=== PATIENT | male | born 1965 | race Caucasian/White ===

== ENCOUNTER 2021-10-04 15:06 | Emergency (ER) | payer SELFPAY ==
[2021-10-04 17:20] LABS: #Eosinphils 0.3 10x3/uL (0.0-0.5); #Monocytes 0.6 10x3/uL (0.0-1.1); #Neutrophils 4.5 10x3/uL (1.5-8.4); %Basophils 0.5 % (0.0-2.0); %Eosinophils 4.1 % (0.0-6.0); %Lymphocytes 34.9 % (18.0-47.0); %Monocytes 6.7 % (0.0-10.0); %Neutrophils 53.6 % (40.0-75.0); Hemoglobin 14.9 g/dL (13.5-17.5); Mean Corpuscular HGB CONC 33.6 g/dL (32.0-36.0); Mean Corpuscular Hemoglobin 30.7 pg (27.0-33.0); Mean Corpuscular Volume 91.5 fl (81.2-95.1); Mean Platelet Volume 9.4 fl (7.4-10.4); Platelet Count 227 10x3/uL (150-450); RBC Distribution Width 13.2 % (11.5-14.5); Red Blood Cell (RBC) Count 4.85 10x6/uL (4.32-5.72); White Blood Cell (WBC) Count 8.3 10x3/uL (3.5-10.5)
[2021-10-04 17:30] LABS: INR-International Normal Ratio 0.9; PTT 26.8 sec (22.0-33.0); Prothrombin Time 10.5 sec (9.5-12.1)
[2021-10-04 17:34] LABS: Anion Gap 17 mmol/L (10-20); BUN (Urea Nitrogen) 16 mg/dL (8.4-25.7); CRP (Inflammatory) Less than 0.50 mg/dL (= or < 0.5); Calc. Creatinine Clearance 0 mL/min (70-130); Calcium 9.3 mg/dL (7.8-10.44); Carbon Dioxide 23 mmol/L (22-29); Chloride 106 mmol/L (98-107); Glucose 92 mg/dL (70-105); Potassium 3.9 mmol/L (3.5-5.1); Sodium 142 mmol/L (136-145)
[2021-10-04] MEDS ORDERED: Ketorolac Tromethamine 30 MG/ML VIAL ONE ×2 (18:18→23:11)
[2021-10-04] MEDS ORDERED: Diazepam 10 MG/2 ML SYRINGE ONE (18:19)
[2021-10-04] MEDS ORDERED: Ondansetron PF 4 MG/2 ML Vial ONE (20:01)
[2021-10-04] MEDS ORDERED: Morphine 4 MG/ML VIAL ONE ×2 (20:01→21:01)
[2021-10-04] MEDS ORDERED: methylPREDNISolone Sod Succ/PF 125 MG/2 ML VIAL ONE (23:11)
== END 2021-10-04 18:21 | disposition home or self-care (01) ==
LOC: CSHERS 15:06
DX: S33.5XXA Sprain of ligaments of lumbar spine, initial encounter (principal); M54.30 Sciatica, unspecified side; I10 Essential (primary) hypertension; X58.XXXA Exposure to other specified factors, initial encounter
CPT/HCPCS: 80048; 85025; 85610; 85730; 86140; 96374; 96375; J1885; J2270; J2405; J2930; J3360

== ENCOUNTER 2022-10-05 14:43 | Emergency (ER) | payer BC ==
[2022-10-05] MEDS ORDERED: Dexamethasone 10 MG/ML VIAL ONE (15:22)
[2022-10-05] MEDS ORDERED: Bicillin LA 1.2 MILLION UNITS/2 ML SYRINGE IM SCH (16:45)
[2022-10-05] MEDS ORDERED: Penicillin G Benzathine 600,000 UNITS/ML SYRINGE IM SCH (17:00)
== END 2022-10-05 17:12 | disposition home or self-care (01) ==
LOC: CSHERS 14:43
DX: J02.0 Streptococcal pharyngitis (principal); Z20.822 Contact with and (suspected) exposure to COVID-19
CPT/HCPCS: 87430; 96372; 99283; J1100; U0003; U0005

== ENCOUNTER 2023-02-22 08:34 | Emergency (ER) | payer BC ==
[2023-02-22 09:29] LABS: #Monocytes 0.3 10x3/uL (0.0-1.1); #Neutrophils 10.1 10x3/uL (1.5-8.4); %Basophils 0.1 % (0.0-2.0); %Lymphocytes 6.3 % (18.0-47.0); %Monocytes 2.8 % (0.0-10.0); %Neutrophils 90.4 % (40.0-75.0); Hemoglobin 16.2 g/dL (13.5-17.5); Mean Corpuscular HGB CONC 33.3 g/dL (32.0-36.0); Mean Corpuscular Hemoglobin 30.1 pg (27.0-33.0); Mean Corpuscular Volume 90.4 fl (81.2-95.1); Mean Platelet Volume 8.9 fl (7.4-10.4); Platelet Count 215 10x3/uL (150-450); RBC Distribution Width 13.3 % (11.5-14.5); Red Blood Cell (RBC) Count 5.39 10x6/uL (4.32-5.72); White Blood Cell (WBC) Count 11.2 10x3/uL (3.5-10.5)
[2023-02-22] MEDS ORDERED: Ondansetron PF 4 MG/2 ML Vial ONE (09:31)
[2023-02-22 09:41] LABS: ALT (SGPT) 25 U/L (8-55); AST (SGOT) 31 U/L (5-34); Albumin 4.9 g/dL (3.5-5.0); Alkaline Phosphatase 61 U/L (40-110); Anion Gap 14 mmol/L (10-20); BUN (Urea Nitrogen) 17 mg/dL (8.4-25.7); Bilirubin, Total 0.8 mg/dL (0.2-1.2); CK (CPK) 438 U/L (30-200); Calc. Creatinine Clearance 0 mL/min (70-130); Calcium 9.5 mg/dL (7.8-10.44); Carbon Dioxide 23 mmol/L (22-29); Chloride 106 mmol/L (98-107); Estimated GFR 73; Globulin 2.7 g/dL (2.4-3.5); Glucose 139 mg/dL (70-105); Lipase 5 U/L (8-78); Potassium 4.2 mmol/L (3.5-5.1); Protein, Total 7.6 g/dL (6.0-8.3); Sodium 139 mmol/L (136-145)
== END 2023-02-22 11:17 | disposition home or self-care (01) ==
LOC: CSHERS 08:34
DX: E86.0 Dehydration (principal); R11.2 Nausea with vomiting, unspecified; R19.7 Diarrhea, unspecified; I10 Essential (primary) hypertension
CPT/HCPCS: 36415; 80053; 82550; 83690; 84484; 85025; 93005; 96361; 96374; J2405

== ENCOUNTER 2023-02-25 01:12 | Emergency (ER) | payer BC, OTHER ==
[2023-02-25] MEDS ORDERED: Dicyclomine 20 MG/2 ML VIAL ONE (01:42)
[2023-02-25] MEDS ORDERED: Ondansetron PF 4 MG/2 ML Vial ONE (01:42)
[2023-02-25 02:03] LABS: #Eosinphils 0.1 10x3/uL (0.0-0.5); #Monocytes 0.5 10x3/uL (0.0-1.1); %Basophils 0.3 % (0.0-2.0); %Eosinophils 1.7 % (0.0-6.0); %Lymphocytes 22.9 % (18.0-47.0); %Monocytes 8.3 % (0.0-10.0); %Neutrophils 66.6 % (40.0-75.0); Hemoglobin 15.9 g/dL (13.5-17.5); Mean Corpuscular Hemoglobin 30.6 pg (27.0-33.0); Mean Corpuscular Volume 90.2 fl (81.2-95.1); Platelet Count 217 10x3/uL (150-450); RBC Distribution Width 13.2 % (11.5-14.5); Red Blood Cell (RBC) Count 5.19 10x6/uL (4.32-5.72)
[2023-02-25 02:11] LABS: ALT (SGPT) 24 U/L (8-55); AST (SGOT) 22 U/L (5-34); Albumin 4.4 g/dL (3.5-5.0); Alkaline Phosphatase 57 U/L (40-110); Anion Gap 11 mmol/L (10-20); BUN (Urea Nitrogen) 13 mg/dL (8.4-25.7); Bilirubin, Total 0.4 mg/dL (0.2-1.2); Calc. Creatinine Clearance 0 mL/min (70-130); Carbon Dioxide 27 mmol/L (22-29); Chloride 105 mmol/L (98-107); Estimated GFR 70; Globulin 2.7 g/dL (2.4-3.5); Glucose 106 mg/dL (70-105); Magnesium 2.2 mg/dL (1.6-2.6); Potassium 3.7 mmol/L (3.5-5.1); Protein, Total 7.1 g/dL (6.0-8.3); Sodium 139 mmol/L (136-145)
[2023-02-25] MEDS ORDERED: Ketorolac Tromethamine 30 MG/ML VIAL ONE (02:28)
[2023-02-25] MEDS ORDERED: Promethazine HCl 25 MG/ML VIAL IVPB SCH (02:30)
== END 2023-02-25 03:56 | disposition home or self-care (01) ==
LOC: CSHERS 01:12
DX: K52.9 Noninfective gastroenteritis and colitis, unspecified (principal); I10 Essential (primary) hypertension; Z79.899 Other long term (current) drug therapy
CPT/HCPCS: 74177; 80053; 83735; 85025; 87324; 87449; 96361; 96374; 96375; J1885; J2405; J2550